=== PATIENT | male | born 1930 | race Caucasian/White ===

== ENCOUNTER 2016-12-04 10:53 | Outpatient (CLI) | payer MEDICARE, OTHER | END 2016-12-04 10:54 | disposition home or self-care (01) | DX: R26.0 Ataxic gait (principal); E87.1 Hypo-osmolality and hyponatremia; E78.5 Hyperlipidemia, unspecified ==

== ENCOUNTER 2017-07-27 14:40 | Outpatient (CLI) | payer MEDICARE, OTHER ==
--- NOTE | 2017-07-27 17:52 | MRI Report ---
EXAM: MRI CERVICAL SPINE WITHOUT CONTRAST EXAM DATE: 07/27/2017 03:32 PM. CLINICAL HISTORY: Cervical radiculopathy. COMPARISONS: None. TECHNIQUE: Multiplanar, multisequence T1-weighted and fluid-sensitive sequences of the cervical spine without contrast. Other: None. FINDINGS: Neurologic Structures: The visualized posterior fossa structures are unremarkable. No signal abnormal ity in the visualized spinal cord. Alignment: There is straightening at the mid portion of the cervical spine. C3-C4 shows 2 mm of anter olisthesis. Bone Marrow: No fractures. Firm bony interbody fusions at C5-C6 and C6-C7. Interspace Levels/Facets: C1-C2: Prominent transverse ligament. No stenosis. C2-C3: Mild broad-based disk bulge is seen. Moderate central stenosis. Moderate bilateral foraminal s tenosis. C3-C4: Some disk dehydration. 2 mm anterolisthesis, some disk uncovering. Moderate central stenosis. Moderate to severe bilateral foraminal stenosis and prominent facets. C4-C5: Disk osteophyte complex at this level. Mild central stenosis. Severe bilateral bony foraminal stenosis. Prominent facets. C5-C6: Firm bony fusion, residual bony bar at the left ventral aspect of the canal, with mild to mode rate central stenosis. Severe left and moderate right foraminal narrowing. C6-C7: Firm interbody fusion is noted. No central or foraminal stenosis. C7-T1: Disk osteophyte complex at this level. No central stenosis. Moderate left foraminal stenosis, right neural foramina is normal. Musculature: Moderate fatty atrophy of the multifidus muscle is seen. Other: The paravertebral and prevertebral soft tissues are normal. IMPRESSION: 1. Straightening of the mid portion of the cervical spine. C3-C4 shows 2 mm of anterolisthesis. No co rd abnormalities. Moderate fatty atrophy of the multifidus muscle. No bony fractures. Firm fusions at C5-C6 and C6-C7. 2. C2-C3 shows a broad-based disk bulge, moderate central stenosis and moderate bilateral foraminal s tenosis. 3. C3-C4 show some disk dehydration, 2 mm of anterolisthesis. Some disk uncovering. Moderate bilatera l foraminal stenosis. 4. C4-C5 shows disk osteophyte complex, mild central stenosis. Severe bilateral foraminal stenosis an d prominent facets. 5. C5-C6 shows a firm bony fusion and residual bony bar with left ventral [id number]-nb-jqehbdoi stenosis. Severe left and moderate right foraminal stenosis. 6. C6-C7 shows firm interbody fusion. No central or foraminal stenosis. 7. C7-T1 shows disk osteophyte complex at this level, moderate left foraminal stenosis, right neural foramina is normal. [facility] Referring Provider Line: [phone] SITE ID: [id number]
== END 2017-07-27 14:41 | disposition home or self-care (01) ==
LOC: DI 14:40
PROVIDERS: ATTEND Psychiatry & Neurology Neurology
DX: M50.31 Other cervical disc degeneration, high cervical region (principal); M43.12 Spondylolisthesis, cervical region
CPT/HCPCS: 72141

== ENCOUNTER 2017-08-12 10:08 | Outpatient (CLI) | payer MEDICARE, OTHER ==
--- NOTE | 2017-08-12 19:00 | XRAY Report ---
BILATERAL WRISTS: 08/12/2017 No comparison. INDICATION: Wrist pain. TECHNIQUE: Three views of each wrist. FINDINGS: There are bone fragments versus soft tissue calcifications about the anterior/volar right wrist of uncertain significance. There are large bone cysts of the carpal bones bilaterally. There are mild degenerative changes of the first carpometacarpal joints. No acute fracture is seen. IMPRESSION: DEGENERATIVE CHANGES OF THE WRISTS ABOVE. BONE FRAGMENTS VERSUS SOFT TISSUE CALCIFICATION ABOUT THE VOLAR RIGHT WRIST IS OF UNCERTAIN CLINICAL SIGNIFICANCE. CORRELATE CLINICALLY FOR TENDERNESS. OTHER IMAGING SUCH CT IS AVAILABLE IF CLINICALLY INDICATED. JOB #: [id number] EXT JOB #: [id number] VIELKA
== END 2017-08-12 10:09 | disposition home or self-care (01) ==
LOC: DI 10:08
PROVIDERS: ATTEND Internal Medicine
DX: M18.0 Bilateral primary osteoarthritis of first carpometacarpal joints (principal)

== ENCOUNTER 2017-10-20 08:00 | Outpatient (CLI) | payer MEDICARE, OTHER ==
[2017-10-20 13:09] LABS: BASOPHILS # (AUTO) 0.1 10^3/uL (0.0-0.1); EOSINOPHILS # (AUTO) 0.1 10^3/uL (0.0-0.7); EOSINOPHILS % (AUTO) 2.7 %; HGB - HEMOGLOBIN 14.7 g/dL (14.0-18.0); LYMPHOCYTES # (AUTO) 1.1 10^3/uL (1.5-3.5); LYMPHOCYTES % (AUTO) 20.8 %; MEAN CORPUSCULAR HEMOGLOBIN 33.4 pg (27.0-31.0); MEAN CORPUSCULAR HGB CONC 34.3 g/dL (32.0-36.0); MEAN CORPUSCULAR VOLUME 97.4 fL (80.0-94.0); MEAN PLATELET VOLUME 7.7 fL (7.4-11.4); MONOCYTES # (AUTO) 0.6 10^3/uL (0.0-1.0); MONOCYTES % (AUTO) 11.1 %; NEUTROPHILS # (AUTO) 3.4 10^3/uL (1.5-6.6); NEUTROPHILS % (AUTO) 64.4 %; PLT - PLATELET COUNT 173 10^3/uL (130-450); RED CELL DISTRIBUTION WIDTH 14.1 % (12.0-15.0); WHITE BLOOD COUNT 5.2 x10^3/uL (4.8-10.8)
[2017-10-20 13:22] LABS: ALBUMIN 4.5 g/dL (3.2-5.5); ALBUMIN/GLOBULIN RATIO 1.9 (1.0-2.2); ALKALINE PHOSPHATASE 54 IU/L (42-121); ALT ALANINE AMINOTRANSFERASE 13 IU/L (10-60); AST ASPARTATE AMINOTRANSFERASE 22 IU/L (10-42); BILIRUBIN,TOTAL 1.3 mg/dL (0.2-1.0); BUN - BLOOD UREA NITROGEN 15 mg/dL (6-20); CALCIUM 9.1 mg/dL (8.5-10.3); CARBON DIOXIDE - CO2 28 mmol/L (21-32); CHLORIDE 100 mmol/L (101-111); CHOL/HDL RATIO 2.4 (<5.0); CHOLESTEROL 241 mg/dL; CREATININE 0.9 mg/dL (0.6-1.2); GFR - MDRD 80 (>89); GLUCOSE 98 mg/dL (70-100); HDL CHOLESTEROL 101 mg/dL; LDL CHOLESTEROL,CALCULATED 122 mg/dL; LDL/HDL RATIO 1.2 (<3.6); SODIUM 136 mmol/L (135-145); TOTAL PROTEIN 6.9 g/dL (6.7-8.2); VLDL CHOLESTEROL 18 mg/dL
== END 2017-10-20 08:01 | disposition home or self-care (01) ==
LOC: LAB.R 08:00
PROVIDERS: ATTEND Internal Medicine
DX: C61 Malignant neoplasm of prostate (principal); E78.5 Hyperlipidemia, unspecified; Z72.89 Other problems related to lifestyle; K21.9 Gastro-esophageal reflux disease without esophagitis; I48.91 Unspecified atrial fibrillation
CPT/HCPCS: 80053; 80061; 84153; 84443; 85025

== ENCOUNTER 2018-06-07 15:49 | Outpatient (CLI) | payer MEDICARE, OTHER ==
[2018-06-07 19:19] LABS: BASOPHILS # (AUTO) 0.1 10^3/uL (0.0-0.1); EOSINOPHILS # (AUTO) 0.1 10^3/uL (0.0-0.7); EOSINOPHILS % (AUTO) 2.1 %; HGB - HEMOGLOBIN 14.3 g/dL (14.0-18.0); LYMPHOCYTES # (AUTO) 1.1 10^3/uL (1.5-3.5); LYMPHOCYTES % (AUTO) 19.2 %; MEAN CORPUSCULAR HEMOGLOBIN 32.5 pg (27.0-31.0); MEAN CORPUSCULAR HGB CONC 33.9 g/dL (32.0-36.0); MEAN CORPUSCULAR VOLUME 95.8 fL (80.0-94.0); MEAN PLATELET VOLUME 7.8 fL (7.4-11.4); MONOCYTES # (AUTO) 0.6 10^3/uL (0.0-1.0); MONOCYTES % (AUTO) 11.3 %; NEUTROPHILS # (AUTO) 3.7 10^3/uL (1.5-6.6); NEUTROPHILS % (AUTO) 66.4 %; PLT - PLATELET COUNT 165 10^3/uL (130-450); RED BLOOD COUNT 4.41 10^6/uL (4.70-6.10); RED CELL DISTRIBUTION WIDTH 15.7 % (12.0-15.0); WHITE BLOOD COUNT 5.6 x10^3/uL (4.8-10.8)
[2018-06-07 19:45] LABS: ALBUMIN 4.2 g/dL (3.2-5.5); ALBUMIN/GLOBULIN RATIO 1.6 (1.0-2.2); BILIRUBIN,TOTAL 1.4 mg/dL (0.2-1.0); CALCIUM 8.9 mg/dL (8.5-10.3); CREATININE 0.4 mg/dL (0.6-1.2); TOTAL PROTEIN 6.9 g/dL (6.7-8.2)
[2018-06-08 08:58] LABS: CLARITY,URINE CLEAR (CLEAR); LEUKOCYTE ESTERASE, URINE NEGATIVE (NEGATIVE); NITRITE,URINE NEGATIVE (NEGATIVE); OCCULT BLOOD,URINE TRACE-INTACT (NEGATIVE); PH,URINE 6.5 PH (5.0-7.5); PROTEIN,URINE NEGATIVE (NEGATIVE); UROBILINOGEN,URINE 0.2 (NORMAL) E.U./dL (NORMAL)
[2018-06-08 08:59] LABS: BACTERIA,URINE None Seen /HPF (None Seen); BILIRUBIN,URINE NEGATIVE (NEGATIVE); GLUCOSE, URINE (UA) NEGATIVE (NEGATIVE); KETONES,URINE (UA) NEGATIVE (NEGATIVE)
[2018-06-08 09:22] LABS: RBC,URINE None Seen /HPF (0-5); SQUAMOUS EPITHELIAL CELL,UR FEW Squamous (<= Few)
== END 2018-06-07 15:50 | disposition home or self-care (01) ==
LOC: LAB.R 15:49
PROVIDERS: ATTEND Physician Assistant Medical
DX: R41.89 Other symptoms and signs involving cognitive functions and awareness (principal); I48.91 Unspecified atrial fibrillation; I10 Essential (primary) hypertension
CPT/HCPCS: 80053; 81001; 85025; 87086

== ENCOUNTER 2019-01-19 12:51 | Outpatient (CLI) | payer MEDICARE, OTHER ==
--- NOTE | 2019-01-19 15:13 | XRAY Report ---
Reason: DYSPHAGIA/PHARYNGOESOPHAGEAL PHASE Procedure Date: 01/19/2019 Accession Number: [id number] / [id number] Procedure: FL - Esophogram CPT Code: FULL RESULT: EXAM: BARIUM ESOPHAGRAM EXAM DATE: 01/19/2019 01:46 PM. CLINICAL HISTORY: Dysphagia/pharyngoesophageal phase. COMPARISONS: None. TECHNIQUE: Routine double contrast esophagram. Fluoroscopy Time: 1 minute 28 seconds. Number of Images: 24. FINDINGS: Swallowing Mechanism: Normal. No tracheal aspiration or penetration. Esophageal Motility: Mildly paretic primary peristaltic stripping wave. Transient tertiary contractions. Mucosa: Normal. No ulcerations or masses. Gastroesophageal Junction: Moderate sized hiatal hernia. No evidence of GE junction stricture. Moderate gastroesophageal reflux was noted without maneuvers involving distal two-thirds of the esophagus in the supine position. Other: None. IMPRESSION: Moderate-sized hiatal hernia with mild to moderate gastroesophageal reflux. No esophageal abnormalities or stricture noted. [facility]
== END 2019-01-19 12:52 | disposition home or self-care (01) ==
LOC: DI 12:51
PROVIDERS: ATTEND Internal Medicine
DX: K21.9 Gastro-esophageal reflux disease without esophagitis (principal); K44.9 Diaphragmatic hernia without obstruction or gangrene
CPT/HCPCS: 74220

== ENCOUNTER 2019-05-17 11:58 | Outpatient (CLI) | payer MEDICARE, OTHER ==
--- NOTE | 2019-05-17 14:50 | MRI Report ---
Reason: MEMORY CHANGES Procedure Date: 05/17/2019 Accession Number: [id number] / [id number] Procedure: MRI - Brain W/O CPT Code: FULL RESULT: EXAM: MRI BRAIN WITHOUT CONTRAST EXAM DATE: 05/17/2019 01:23 PM. CLINICAL HISTORY: 88-year-old presenting with worsening memory loss. Evaluate for intracranial pathology. COMPARISON: MR brain 03/16/2007. TECHNIQUE: Multiplanar, multisequence T1-weighted and fluid-sensitive MR sequences of the brain were performed. Sequences optimized for routine evaluation. Other: None. IV Contrast: None. FINDINGS: Brain Volume: Moderate cortical volume loss. Parenchyma/Dura: No acute parenchymal hemorrhage, mass, or midline shift. 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 There are mild bilateral areas of T2/FLAIR signal hyperintensity seen. No areas of restricted diffusion seen to suggest acute infarct. There is abnormal parenchymal susceptibility artifact seen within bilateral basal ganglia that may represent mineralization. Ventricles/Cisterns: No hydrocephalus. No abnormal extra-axial fluid collection or hemorrhage. Orbits: Changes of bilateral lens replacement. Sella Turcica: The pituitary gland, cavernous sinuses, suprasellar cistern and optic chiasm are unremarkable. IAC: Symmetric and unremarkable. Vasculature: Normal signal flow void is seen in the major arterial structures at the skull base. Sinuses: No acute appearing sinus disease. Bones: No focal pathologic appearing marrow signal changes. Prominent posterior pannus seen at C1-C2 with indentation of the thecal sac. Other: None. IMPRESSION: 1. No definite acute intracranial pathology seen; specifically, no acute infarct, acute intracranial hemorrhage, mass, hydrocephalus, or midline shift. 2. 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 3. Mild white matter changes seen that while nonspecific, may represent sequela of chronic small vessel ischemic disease. [facility]
== END 2019-05-17 11:59 | disposition home or self-care (01) ==
LOC: DI 11:58
PROVIDERS: ATTEND Psychiatry & Neurology Neurology
DX: R41.3 Other amnesia (principal)
CPT/HCPCS: 70551

== ENCOUNTER 2019-06-14 22:41 | Emergency (ER) | payer MEDICARE, OTHER ==
--- NOTE | 2019-06-14 22:54 | ED Physician Documentation ---
History of Present Illness - Stated complaint Stated Complaint: NAUSEA/BP CONCERN - Chief complaint Chief Complaint: Abd Pain - History obtained from History obtained from: Patient, Family - History of Present Illness Timing: Today Pain level now: 5 Improved by: no ameliorating factors Worsened by: no exacerbating factors - Additonal information Additional information: chief complaint is high blood pressure. patient says he has had episodic nausea without vomiting since this morning, generalized malaise, "just don't feel well" (per patient). This started around noon today. took his blood pressure and then did so repeatedly throughout the day, with readings 140s-170s SBP and 70s-90s DBP (one reading of 155/125). He took an extra dose of his QD metoprolol this evening. Review of Systems Constitutional: denies: Fever, Chills, Myalgias, Fatigue, Sweats Cardiac: reports: Reviewed and negative Respiratory: reports: Reviewed and negative GI: reports: Nausea. denies: Abdominal Pain, Vomiting, Constipation, Diarrhea : denies: Dysuria, Frequency Musculoskeletal: denies: Back pain Neurologic: reports: Generalized weakness (chronic), Numbness (BLE (chronic)). denies: Focal weakness, Headache PD PAST MEDICAL HISTORY - Past Medical History Cardiovascular: Hypertension, Atrial fibrillation Respiratory: Other Endocrine/Autoimmune: None GI: None : Other HEENT: Chronic hearing loss, Other Psych: None Musculoskeletal: None Derm: Herpes zoster, Other - Past Surgical History General: Hiatal hernia repair Ortho: Spine surgery, Other HEENT: Cataracts, Tonsil/Adenoidectomy - Present Medications Home Medications: Ambulatory Orders Medication Instructions Recorded Confirmed Apixaban [Eliquis] 5 mg PO BID 04/08/16 06/14/19 Metoprolol Succinate [Toprol Xl] 50 mg PO DAILY 04/08/16 06/14/19 Omeprazole 1 tab PO DAILY 06/14/19 06/14/19 - Allergies Allergies/Adverse Reactions: Allergies Allergy/AdvReac Type Severity Reaction Status Date / Time Penicillins Allergy Rash Verified 06/14/19 22:52 Sulfa (Sulfonamide Allergy Rash Verified 06/14/19 22:52 Antibiotics) lisinopril AdvReac Unknown Verified 06/14/19 22:52 PD ED PE NORMAL - Vitals Vital signs reviewed: Yes - General General: Alert and oriented X 3, No acute distress, Well developed/nourished - HEENT HEENT: PERRL, EOMI, Moist mucous membranes - Neck Neck: Supple, no meningeal sign - Respiratory Respiratory: No respiratory distress, Clear bilaterally - Abdomen Abdomen: Soft, Non tender, Non distended - Derm Derm: Normal color, Warm and dry - Extremities Extremities: No edema PD ED PE EXPANDED - Cardiac Cardiac: Regular Rate, Irregularly irregular, Murmur Present (2/6 GIOVANNI limited to right sternal border) Results - Vitals Vitals: Vital Signs - 24 hr 06/14/19 06/14/19 06/14/19 22:47 23:05 23:07 Temperature 35.8 C L Heart Rate 86 81 Respiratory 11 L 19 Rate Blood Pressure 197/110 H 162/115 H Blood Pressure 162/115 H [Right] O2 Saturation 97 99 06/14/19 06/14/19 06/14/19 23:28 23:32 23:38 Temperature Heart Rate 76 64 68 Respiratory 15 16 12 Rate Blood Pressure 176/105 H 186/105 H 165/108 H Blood Pressure [Right] O2 Saturation 97 98 98 06/14/19 06/15/19 06/15/19 23:58 00:08 00:31 Temperature Heart Rate 76 65 67 Respiratory 14 10 L 16 Rate Blood Pressure 186/96 H 170/96 H 167/94 H Blood Pressure [Right] O2 Saturation 96 97 96 06/15/19 06/15/19 06/15/19 00:48 00:56 01:08 Temperature 36.7 C Heart Rate 73 73 73 Respiratory 14 17 16 Rate Blood Pressure 157/94 H 157/94 H 157/87 H Blood Pressure [Right] O2 Saturation 96 98 99 Oxygen O2 Source Room air - EKG (time done) No standard instances Rate: Rate (enter#) (85) Rhythm: Atrial fibrillation [place]: Normal QRS: Normal Ischemia: Normal ST segments Computer interpretation: Disagree with computer (no significant ST abnormalities) - Labs Labs: Laboratory Tests 06/14/19 06/14/19 23:00 23:00 WBC 5.9 RBC 4.54 L Hgb 14.5 Hct 43.4 MCV 95.6 H MCH 31.9 H MCHC 33.4 RDW 14.4 Plt Count 143 MPV 9.0 Neut # (Auto) 3.9 Lymph # (Auto) 1.1 L Davis # (Auto) 0.7 Eos # (Auto) 0.1 Baso # (Auto) 0.0 Absolute Nucleated RBC 0.00 Nucleated RBC % 0.0 Sodium 134 L Potassium 3.8 Chloride 99 L Carbon Dioxide 25 Anion Gap 10.0 BUN 11 Creatinine 0.8 Estimated GFR (MDRD) 91 Glucose 107 H Calcium 9.0 Total Bilirubin 1.6 H AST 23 ALT 16 Alkaline Phosphatase 58 Total Protein 7.2 Albumin 4.3 Globulin 2.9 Albumin/Globulin Ratio 1.5 Lipase 32 PD MEDICAL DECISION MAKING - ED course Complexity details: reviewed results, re-evaluated patient, considered differe jossyial, d/w patient ED course: BP improved after 5mg IV lopressor followed by 0.2mg PO clonidine. Reassuring test results and patient feels well on reevaluation, has no signs nor symptoms referable to high blood pressure and thus can f/u outpatient, return if worse. I specifically reviewed with patient and his spouse the need to return if he has chest pain, shortness of breath, new weakness or numbness, severe headache, visual changes, altered mental status Departure - Departure Disposition: 01 Home, Self Care Clinical Impression: Hypertension Condition: Good Instructions: ED Hypertension Conf Out Of Control Follow-Up: Jacinto Wilson MD [Primary Care Provider] - Within 3 Days Discharge Date/Time: 06/15/19 01:09
[2019-06-14] MEDS ORDERED: METOPROLOL 5 MG/5 ML VIAL IVP STA (23:09)
[2019-06-14] MEDS ORDERED: ONDANSETRON 4 MG/2 ML VIAL IVP STA (23:17)
[2019-06-14] MEDS ORDERED: SODIUM CHLORIDE 0.9% 500 ML IV STA (23:17)
[2019-06-14 23:19] LABS: BASOPHILS % (AUTO) 0.7 %; EOSINOPHILS # (AUTO) 0.1 10^3/uL (0.0-0.7); EOSINOPHILS % (AUTO) 2.2 %; HGB - HEMOGLOBIN 14.5 g/dL (14.0-18.0); LYMPHOCYTES # (AUTO) 1.1 10^3/uL (1.5-3.5); LYMPHOCYTES % (AUTO) 18.6 %; MEAN CORPUSCULAR HEMOGLOBIN 31.9 pg (27.0-31.0); MEAN CORPUSCULAR HGB CONC 33.4 g/dL (32.0-36.0); MEAN CORPUSCULAR VOLUME 95.6 fL (80.0-94.0); MONOCYTES # (AUTO) 0.7 10^3/uL (0.0-1.0); MONOCYTES % (AUTO) 11.2 %; NEUTROPHILS # (AUTO) 3.9 10^3/uL (1.5-6.6); NEUTROPHILS % (AUTO) 66.6 %; PLT - PLATELET COUNT 143 10^3/uL (130-450); RED BLOOD COUNT 4.54 10^6/uL (4.70-6.10); RED CELL DISTRIBUTION WIDTH 14.4 % (12.0-15.0); WHITE BLOOD COUNT 5.9 x10^3/uL (4.8-10.8)
[2019-06-14 23:33] LABS: ALBUMIN 4.3 g/dL (3.2-5.5); ALBUMIN/GLOBULIN RATIO 1.5 (1.0-2.2); BILIRUBIN,TOTAL 1.6 mg/dL (0.2-1.0); CREATININE 0.8 mg/dL (0.6-1.2); TOTAL PROTEIN 7.2 g/dL (6.7-8.2)
[2019-06-15] MEDS ORDERED: cloNIDine 0.1 MG TABLET PO STA (00:09)
[2019-06-15 01:12] VITALS: BP 157/87
== END 2019-06-15 01:09 | disposition home or self-care (01) ==
LOC: ED 22:41
DX: I10 Essential (primary) hypertension (principal)
CPT/HCPCS: 36415; 80053; 83690; 85025; 93005; 96361; 96374; 96375; 99283; 99284; A9270

== ENCOUNTER 2019-07-05 13:51 | Outpatient (CLI) | payer MEDICARE, OTHER ==
[2019-07-05 14:12] LABS: BASOPHILS # (AUTO) 0.1 10^3/uL (0.0-0.1); BASOPHILS % (AUTO) 1.3 %; EOSINOPHILS # (AUTO) 0.1 10^3/uL (0.0-0.7); EOSINOPHILS % (AUTO) 2.5 %; HGB - HEMOGLOBIN 14.8 g/dL (14.0-18.0); LYMPHOCYTES # (AUTO) 1.2 10^3/uL (1.5-3.5); LYMPHOCYTES % (AUTO) 21.6 %; MEAN CORPUSCULAR HEMOGLOBIN 32.6 pg (27.0-31.0); MEAN CORPUSCULAR HGB CONC 33.9 g/dL (32.0-36.0); MEAN CORPUSCULAR VOLUME 96.3 fL (80.0-94.0); MEAN PLATELET VOLUME 9.4 fL (7.4-11.4); MONOCYTES # (AUTO) 0.7 10^3/uL (0.0-1.0); MONOCYTES % (AUTO) 12.4 %; NEUTROPHILS # (AUTO) 3.4 10^3/uL (1.5-6.6); NEUTROPHILS % (AUTO) 61.8 %; PLT - PLATELET COUNT 164 10^3/uL (130-450); RED BLOOD COUNT 4.54 10^6/uL (4.70-6.10); WHITE BLOOD COUNT 5.5 x10^3/uL (4.8-10.8)
[2019-07-05 14:23] LABS: CALCIUM 9.4 mg/dL (8.5-10.3)
== END 2019-07-05 13:52 | disposition home or self-care (01) ==
LOC: LAB 13:51
PROVIDERS: ATTEND Family Medicine
DX: I48.91 Unspecified atrial fibrillation (principal)
CPT/HCPCS: 36415; 80048; 85025

== ENCOUNTER 2019-11-20 14:13 | Outpatient (CLI) | payer MEDICARE, OTHER | END 2019-11-20 14:14 | disposition critical access hospital (66) | LOC: EMS 14:13 | PROVIDERS: ATTEND Surgery | DX: R47.01 Aphasia (principal) | CPT/HCPCS: A0425; A0429 ==

== ENCOUNTER 2019-11-20 14:22 | Observation (INO) | payer MEDICARE, OTHER ==
--- NOTE | 2019-11-20 14:33 | ED Physician Documentation ---
History of Present Illness - Stated complaint Stated Complaint: POSS TIA - Additonal information Additional information: This is an 89-year-old with atrial fibrillation on Eliquis, hypertension, and carpal tunnel syndrome, who presents with resolved aphasia. At 13:45 he was at his house when he realized he could not speak to his , his speech was reportedly garbled. He also states that he felt weak like he could not get off the couch, but he does not know if he felt weak on one side of his body or the other. He had some numbness in his bilateral hands, though with his carpal tunnel he is not sure if that was new or old. EMS was called right away by his , and he symptoms began resolving en route. Currently he is feeling normal and denies any weakness, numbness, speech change or confusion. He denies any falls or head trauma, no fever, he was feeling well prior to this event. He denies any history of known CVA. He did miss his Eliquis and other medications this morning. BG of 125 en route. Review of Systems Constitutional: denies: Fever Eyes: denies: Loss of vision Nose: denies: Rhinorrhea / runny nose Cardiac: denies: Chest pain / pressure Respiratory: denies: Dyspnea GI: denies: Abdominal Pain : denies: Dysuria Skin: denies: Rash Neurologic: reports: Difficulty speaking Immunocompromised: denies: Immunocompromised PD PAST MEDICAL HISTORY - Past Medical History Cardiovascular: Hypertension, Atrial fibrillation Respiratory: Other Neuro: None Endocrine/Autoimmune: None GI: None : Other HEENT: Chronic hearing loss, Other Psych: None Musculoskeletal: None Derm: Herpes zoster, Other - Past Surgical History Past Surgical History: Yes General: Hiatal hernia repair Ortho: Spine surgery, Other HEENT: Cataracts, Tonsil/Adenoidectomy - Present Medications Home Medications: Ambulatory Orders Medication Instructions Recorded Confirmed Metoprolol Succinate [Toprol Xl] 50 mg PO DAILY 04/08/16 11/20/19 Apixaban [Eliquis] 5 mg PO BID 11/20/19 11/20/19 Esomeprazole Magnesium [Nexium] 20 mg PO QDAC 11/20/19 11/20/19 - Allergies Allergies/Adverse Reactions: Allergies Allergy/AdvReac Type Severity Reaction Status Date / Time Penicillins Allergy Rash Verified 11/20/19 14:31 Sulfa (Sulfonamide Allergy Rash Verified 11/20/19 14:31 Antibiotics) lisinopril AdvReac Unknown Verified 11/20/19 14:31 - Social History Does the pt smoke?: No Smoking Status: Never smoker Does the pt drink ETOH?: Yes Does the pt have substance abuse?: No - Immunizations Immunizations are current?: No Immunizations: TDAP >10years/unknown - POLST Patient has POLST: No PD ED PE NORMAL - Vitals Vital signs reviewed: Yes - General General: Alert and oriented X 3, No acute distress - HEENT HEENT: Atraumatic, PERRL - Neck Neck: Supple, no meningeal sign - Cardiac Cardiac: RRR, No murmur - Respiratory Respiratory: Clear bilaterally - Abdomen Abdomen: Normal bowel sounds, Soft, Non tender, Non distended - Derm Derm: Warm and dry - Extremities Extremities: No deformity - Neuro Neuro: Alert and oriented X 3, Other (CN2-12 intact, PERRL, EOMI, visual solomon intact to confrontation, smile symmetric, no facial droop, sensation over face normal. 5/5 strength with elbow flexion, extension, shoulder abduction, hip flexion, ankle flexion and extension. No drift in any extremity. Speech fluent and articulate. No dysmetria. Sensation intact over all extremities.) - Psych Psych: Normal mood, Normal affect Results - Vitals Vitals: Vital Signs - 24 hr 11/20/19 11/20/19 14:23 15:37 Temperature 36.6 C Heart Rate 88 90 Respiratory 18 30 H Rate Blood Pressure 151/93 H 144/86 H O2 Saturation 98 97 Oxygen O2 Source Room air - EKG (time done) 1615 Other comments: Other comments (Rate 81, rhythm atrial fibrillation, there is no ST segment elevation or depression T wave inversions. There is some T wave flattening in lead III) - Labs Labs: Laboratory Tests 11/20/19 11/20/19 11/20/19 14:30 14:30 14:30 WBC 5.2 RBC 4.51 L Hgb 12.6 L Hct 39.1 L MCV 86.7 MCH 27.9 MCHC 32.2 RDW 14.7 Plt Count 155 MPV 9.3 Neut # (Auto) 3.6 Lymph # (Auto) 1.0 L Burnett # (Auto) 0.5 Eos # (Auto) 0.1 Baso # (Auto) 0.1 Absolute Nucleated RBC 0.00 Nucleated RBC % 0.0 PT 15.4 H INR 1.4 H APTT 36.3 H Sodium 134 L Potassium 3.8 Chloride 101 Carbon Dioxide 24 Anion Gap 9.0 BUN 14 Creatinine 0.8 Estimated GFR (MDRD) 91 Glucose 154 H Calcium 9.0 Total Bilirubin 1.0 AST 24 ALT 13 Alkaline Phosphatase 43 Troponin I High Sens Total Protein 7.1 Albumin 4.3 Globulin 2.8 Albumin/Globulin Ratio 1.5 Lipase 32 Ethyl Alcohol < 5.0 11/20/19 14:30 WBC RBC Hgb Hct MCV MCH MCHC RDW Plt Count MPV Neut # (Auto) Lymph # (Auto) Burnett # (Auto) Eos # (Auto) Baso # (Auto) Absolute Nucleated RBC Nucleated RBC % PT INR APTT Sodium Potassium Chloride Carbon Dioxide Anion Gap BUN Creatinine Estimated GFR (MDRD) Glucose Calcium Total Bilirubin AST ALT Alkaline Phosphatase Troponin I High Sens 6.1 Total Protein Albumin Globulin Albumin/Globulin Ratio Lipase Ethyl Alcohol - Rads (name of study) CT head WO Radiology: Other (No acute intracranial abnormality) PD MEDICAL DECISION MAKING - ED course Complexity details: considered differential (TIA, CVA, head bleed, electrolyte abnormality, delirium, medication side effect, intoxication, electrolye abnormality, dysrhytmia, seizure) ED course: On arrival pt has NIHSS of 0, no deficit on thorough neurologic exam. Stat CT head was obtained and shows no acute abnormality. On repeat exam pt continues to be asymptomatic. His family corroborates his story of poor speech/aphasia. He has a-fib and missed his eliquis, putting him at higher risk for stroke. He was given aspirin here. Labs are unrevealing for other obvious cause of his symptoms, and his history is most consistent with TIA. No reports of seizure like activity, no chest pain or shortness of breath. I discussed my recommendation for admission with the patient, who was in agreement, and he was admitted to the hospital for further treatment and evaluation. Departure - Departure Disposition: ED Place in Observation Clinical Impression: TIA (transient ischemic attack) Condition: Good Discharge Date/Time: 11/20/19 16:49
[2019-11-20 14:41] LABS: BASOPHILS # (AUTO) 0.1 10^3/uL (0.0-0.1); EOSINOPHILS # (AUTO) 0.1 10^3/uL (0.0-0.7); EOSINOPHILS % (AUTO) 1.9 %; HGB - HEMOGLOBIN 12.6 g/dL (14.0-18.0); LYMPHOCYTES % (AUTO) 18.3 %; MEAN CORPUSCULAR HEMOGLOBIN 27.9 pg (27.0-31.0); MEAN CORPUSCULAR HGB CONC 32.2 g/dL (32.0-36.0); MEAN CORPUSCULAR VOLUME 86.7 fL (80.0-94.0); MEAN PLATELET VOLUME 9.3 fL (7.4-11.4); MONOCYTES # (AUTO) 0.5 10^3/uL (0.0-1.0); MONOCYTES % (AUTO) 9.4 %; NEUTROPHILS # (AUTO) 3.6 10^3/uL (1.5-6.6); PLT - PLATELET COUNT 155 10^3/uL (130-450); RED BLOOD COUNT 4.51 10^6/uL (4.70-6.10); RED CELL DISTRIBUTION WIDTH 14.7 % (12.0-15.0); WHITE BLOOD COUNT 5.2 x10^3/uL (4.8-10.8)
[2019-11-20 14:50] LABS: ALBUMIN 4.3 g/dL (3.2-5.5); ALBUMIN/GLOBULIN RATIO 1.5 (1.0-2.2); ALKALINE PHOSPHATASE 43 IU/L (42-121); ALT ALANINE AMINOTRANSFERASE 13 IU/L (10-60); AST ASPARTATE AMINOTRANSFERASE 24 IU/L (10-42); BUN - BLOOD UREA NITROGEN 14 mg/dL (6-20); CARBON DIOXIDE - CO2 24 mmol/L (21-32); CHLORIDE 101 mmol/L (101-111); CREATININE 0.8 mg/dL (0.6-1.2); GFR - MDRD 91 (>89); GLUCOSE 154 mg/dL (70-100); LIPASE 32 U/L (22-51); SODIUM 134 mmol/L (135-145); TOTAL PROTEIN 7.1 g/dL (6.7-8.2)
[2019-11-20 14:52] LABS: INR 1.4 (0.8-1.2); PT - PROTHROMBIN TIME 15.4 secs (9.9-12.6)
--- NOTE | 2019-11-20 14:54 | CT Report ---
Reason: Aphasia, resolving Procedure Date: 11/20/2019 Accession Number: [id number] / [id number] Procedure: CT - Head W/O Stroke Protocol CPT Code: Final Report FULL RESULT: EXAM: CT HEAD EXAM DATE: 11/20/2019 02:40 PM. CLINICAL HISTORY: Aphasia, resolving. COMPARISON: BRAIN W/O 05/17/2019 12:23 PM. TECHNIQUE: Multiaxial CT images were obtained from the foramen magnum to the vertex. Reformats: Sagittal and coronal. IV contrast: None. In accordance with CT protocol optimization, one or more of the following dose reduction techniques were utilized for this exam: automated exposure control, adjustment of mA and/or KV based on patient size, or use of iterative reconstructive technique. FINDINGS: Parenchyma: No intraparenchymal hemorrhage. No evidence of mass, midline shift, or CT findings of acute infarction. Watkins-white differentiation is distinct. 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 Extraaxial Spaces: Normal for age. No subdural or epidural collections identified. Ventricles: The ventricles and cortical sulci are enlarged, consistent with age-related tissue loss. Sinuses and orbits: Imaged paranasal sinuses, orbits, and mastoids show no significant abnormality. Bones: No evidence of fracture or calvarial defect. Other: Prominent chronic cavernous carotid calcifications. IMPRESSION: Generalized age-related cortical atrophic changes without evidence of acute intracranial abnormality. Intracranial atherosclerosis. [facility] The critical test notification system was initiated by Dr. Jose Cristina at 02:50 PM on 11/20/2019. The above critical test findings were discussed with Nahum Pete by Dr. Jose Cristina at 02:53 PM on 11/20/2019.
[2019-11-20 14:59] LABS: PARTIAL THROMBOPLASTIN TIME 36.3 secs (24.9-33.3)
[2019-11-20] MEDS ORDERED: ASPIRIN CHEW 81 MG TABLET PO STA (15:18)
[2019-11-20] MEDS ORDERED: SODIUM CHLORIDE FLUSH 0.9% 10 ML SYRINGE IVP PRN (15:58)
[2019-11-20] MEDS ORDERED: ACETAMINOPHEN 325 MG TABLET PO PRN (15:58)
--- NOTE | 2019-11-20 16:38 | PHARMACY PROGRESS NOTE ---
- Best Possible Medication History Admit Date and Time: 11/20/19 1558 Processed by: Pharmacy Medication History completed: Yes Patient Interview: Completed Secondary Source(s): Written medication list, Spouse/Significant other As the person ultimately responsible for medication therapy, providers are able to order a medication from an existing home medication list in [facility] via the "Reconcile Routine" prior to Confirmation of that medication by application support engineer. Such practice is discouraged except when the physician, in their clinical judgment, deems that a medical need exists for a medication without regard to previous use.
[2019-11-20 18:49] LABS: BILIRUBIN,URINE NEGATIVE (NEGATIVE); GLUCOSE, URINE (UA) NEGATIVE (NEGATIVE); KETONES,URINE (UA) NEGATIVE (NEGATIVE); LEUKOCYTE ESTERASE, URINE NEGATIVE (NEGATIVE); NITRITE,URINE NEGATIVE (NEGATIVE); OCCULT BLOOD,URINE TRACE-INTA (NEGATIVE); PROTEIN,URINE NEGATIVE (NEGATIVE); UROBILINOGEN,URINE 1 (NORMAL) E.U./dL (NORMAL)
[2019-11-20 18:51] LABS: CLARITY,URINE CLEAR (CLEAR)
[2019-11-20] MEDS: SODIUM CHLORIDE FLUSH 0.9% 10 ML SYRINGE IVP SCH (19:56)
--- NOTE | 2019-11-20 20:14 | HISTORY & PHYSICAL EXAMINATION ---
DATE OF SERVICE: 11/20/2019 Physician: Zaynab Durant MD HISTORY OF PRESENT ILLNESS: This is an 89-year-old, white male with a history of hypertension, chronic atrial fibrillation on Eliquis, history of multi- infarct dementia with MRI in 04/2019 showing multiple lacunar infarcts. The patient does not take his Eliquis reliably. The family was told that his brain MRI, done 05/06 to evaluate worsening memory, showed "old age changes". The patient recently had carpal tunnel surgery 4 days ago, under conscious sedation, and still has a bandage over the left wrist. He lives at home with his , he takes walks on the beach and has had several falls on the beach, for which he has not sought medical attention. The patient presents with acute onset of numbness of his mid body starting in the groin area and going up the abdomen and chest, and then he could not speak. He started to garble and called for his for help, who asked him to smile and said that it was not even. He was moving both arms, but had garbled speech. She called 911. The paramedics arrived and transported him to the emergency room. In the ambulance, his speech started to recover and since being in the ER he has had no deficits. He has never had symptoms like this before. He did have a brain MRI done about a year ago to evaluate "poor memory." The family was told that the findings were consistent with "old age." The patient admits that he sometimes skips his Eliquis because, "He does not believe in taking medications." There is no history of odynophagia or GI sensitivity with these medicines, but simply a "philosophical reason" not to take them. When his atrial fibrillation was diagnosed approximately 5 years ago, he did not have a stress test that he can remember. An Echo report is in the old records from about then, that showed a normal LVEF and mild valvular regurgitation. He has never seen a Dissolver Operator. He was first started on Coumadin for Afib, then it was changed to Eliquis. ALLERGIES: PENICILLIN, SULFA, AND LISINOPRIL. MEDICATIONS 1. Eliquis 5 mg b.i.d. 2. Nexium 20 mg daily. 3. Toprol-XL 50 mg daily for blood pressure. FAMILY HISTORY: Noncontributory. SOCIAL HISTORY: The patient is an ex-smoker who quit over 60 years ago, drinks rare alcohol, which he describes as about 5 beers per week, and there is no illicit drug use history. The patient lives with his in their own house. He takes walks on the beach using two walking sticks and has had falls on the beach. The patient still drives a car. REVIEW OF SYSTEMS: The describes that his memory is getting worse, for example; he cannot remember that his younger sister and grandchildren just visited them a week ago, forgets where things are in the house. He denies chest pain or palpitations, lightheadedness or syncope. A comprehensive review of systems was performed and the pertinent positives are listed, the rest are negative. PHYSICAL EXAMINATION GENERAL: Elderly white male. He has quiet speech, but it is appropriate and is not slurred. VITAL SIGNS: Blood pressure 170/80, heart rate 70-90 in sinus rhythm, afebrile, room air saturation 99%. HEENT: Unremarkable. Mucosa is moist. NECK: Positive JVD with large ventricular waves present. There are no carotid bruits. CHEST: Clear. HEART: Heart sounds are irregular with a 3/6 systolic murmur heard at the lower left sternal border. There is no gallop. PMI is vertically displaced. ABDOMEN: Soft, positive bowel sounds. EXTREMITIES: Show trace pretibial edema. No clubbing or cyanosis. The left wrist is in a bandage from the recent carpal tunnel surgery. There are some small bruises of the hand near that bandage. NEUROLOGIC: Grossly intact currently. LABORATORY DATA: Sodium 134, otherwise normal electrolytes. Normal BUN and creatinine. Normal liver tests. Troponin negligible at 6.1. White blood count 5.2, hemoglobin 12.6, platelet count 155. INR was done, but is not reliable in a patient on Eliquis. Toxicology showed no serum alcohol present. IMAGING: No chest x-ray was done. The head CT showed age-related cortical atrophy changes and intracranial atherosclerosis, but no acute stroke findings. EKG: Atrial fibrillation, rate 80, and otherwise unremarkable. It is similar to an old EKG. IMPRESSION/DIAGNOSES 1. Transient ischemic attack. 1. Hypertension. 2. Chronic atrial fibrillation, on Eliquis. 3. Noncompliance with medications. 4. Multi-infarct dementia, by MRI of 04/2019 5. Recent carpal tunnel surgery. PLAN: Place the patient in Observation status on telemetry. Continue with his Toprol medication. Stop his Eliquis, since he now has increased risk of turnin an acute CVA into a hemorrhagic stroke. We will now use antiplatelet agents, with aspirin daily for approximately 2 weeks (per UpToDate guidelines). Order an Echo to evaluate for clot, shunt, check LVEF and to evaluate the murmur. Obtain carotid Dopplers. Obtain brain MRI and MRA for closer evaluation of the intracranial vessel atherosclerosis, and whether there was a parenchymal stroke. I reiterated the importance of compliance with medications, but the patient was not amenable to this. The confirms that he adjusts his medications on his own, has stopped his statins in the past. Check lipids and treat per guidelines. CODE STATUS: FULL CODE. DEEP VENOUS THROMBOSIS PROPHYLAXIS: SCDs. ATTESTATION: The patient is expected to be discharged or transferred to another facility within 96 hours: Yes. cc: Jacinto Wilson MD TD: 11/20/2019 18:20 MTDD
--- NOTE | 2019-11-20 21:43 | Ultrasound Report ---
Reason: TIA Procedure Date: 11/20/2019 Accession Number: [id number] / [id number] Procedure: US - Carotid Doppler Complete CPT Code: Final Report FULL RESULT: EXAM: BILATERAL CAROTID AND VERTEBRAL ARTERY DUPLEX DOPPLER ULTRASOUND: EXAM DATE: 11/20/2019 07:19 PM CLINICAL HISTORY: Transient ischemic attack, hypertension, chronic atrial fibrillation, COMPARISON: None. TECHNIQUE: Grayscale imaging, color Doppler, and duplex spectral Doppler were used to evaluate the carotid and vertebral arteries bilaterally. Static images were obtained. FINDINGS: There is moderate calcific plaque within the mid and distal portion of the right common carotid artery. Moderate to severe atherosclerotic vascular disease within the right carotid bulb region and the proximal ICA. Mild to moderate calcified and soft plaque is seen within the left mid and distal common carotid artery. Moderate to severe atherosclerotic vascular disease within the left carotid bulb region. Mild to moderate atherosclerotic vascular disease in the left proximal ICA. VELOCITIES (cm/sec): Right CCA mid: PSV 45.0 cm/sec CCA dist: PSV 37.8 cm/sec ICA prox: PSV 92.6 cm/sec, EDV 15.2 cm/sec ICA mid: PSV 86.1 cm/sec, EDV 20.2 cm/sec ICA dist: PSV 62.7 cm/sec, EDV 16.5 cm/sec ECA: PSV 72.4 cm/sec Vert: PSV 29.2 cm/sec ICA/CCA: 2.1 Left CCA mid: PSV 37.9 cm/sec CCA dist: PSV 34.5 cm/sec ICA prox: PSV 70.6 cm/sec, EDV 23.7 cm/sec ICA mid: PSV 78.5 cm/sec, EDV 18.2 cm/sec ICA dist: PSV 70.6 cm/sec, EDV 19.1 cm/sec ECA: PSV 85.9 cm/sec Vert: PSV 60.1 cm/sec ICA/CCA: 2.1 ICA diameter stenosis: Right: <50% by velocity and <70% by NASCET criteria. Left: <50% by velocity and <70% by NASCET criteria. IMPRESSION: 1. There is moderate to severe bilateral carotid artery plaquing. 2. Less than 50% stenosis of the right and left internal carotid arteries based on velocity criteria. However, suspect that the degree of stenosis is likely closer to 50%. 3. Normal antegrade flow is present in bilateral vertebral arteries. 4. Further assessment could be considered with a CT or MRI angiogram of the neck if clinically warranted. General Recommendations: Stenosis =50% ICA - Follow-up ultrasound 6-12 months Stenosis <50% ICA - High Risk Patient with plaque - Follow-up ultrasound 1-2 years Normal Study but High Risk Patient - Follow-up ultrasound 3-5 years Management recommendations and diagnostic criteria are based on current IAC endorsed standards in Carotid Artery Stenosis: Grayscale and Doppler Ultrasound Diagnosis. Validated velocity measurements with angiographic measurements and velocity criteria are extrapolated from diameter data as defined by the Society of Radiologists in Ultrasound Consensus Conference Radiology 2003; 229;340-346. RADIA
[2019-11-20] MEDS: FAMOTIDINE 20 MG/2 ML VIAL IVP SCH (22:19)
[2019-11-21] MEDS: SODIUM CHLORIDE FLUSH 0.9% 10 ML SYRINGE IVP SCH ×3 (01:13→21:05)
[2019-11-21 06:06] LABS: CHOL/HDL RATIO 2.6 (<5.0); CHOLESTEROL 197 mg/dL; HDL CHOLESTEROL 76 mg/dL; LDL CHOLESTEROL,CALCULATED 110 mg/dL; LDL/HDL RATIO 1.4 (<3.6); VLDL CHOLESTEROL 11 mg/dL
[2019-11-21] MEDS: PANTOPRAZOLE 40 MG TABLET PO SCH (06:47)
[2019-11-21] MEDS: FAMOTIDINE 20 MG/2 ML VIAL IVP SCH ×2 (08:28→21:02)
[2019-11-21] MEDS: METOPROLOL SUCCINATE 50 MG TABLET PO SCH (08:28)
[2019-11-21] MEDS ORDERED: ASPIRIN EC 325 MG TABLET PO SCH (09:00)
[2019-11-21] MEDS ORDERED: LORazepam 2 MG/ML VIAL IVP STA (12:12)
[2019-11-21] MEDS ORDERED: GADOBUTROL 10 MMOL/10 ML VIAL ONE (12:43)
--- NOTE | 2019-11-21 16:55 | MRI Report ---
Reason: TIA Procedure Date: 11/21/2019 Accession Number: [id number] / [id number] Procedure: MRI - Brain W/O CPT Code: Final Report FULL RESULT: MRI BRAIN WITHOUT CONTRAST INDICATION: 89-year-old male. History of recent transient episode of aphasia. Concern for possible TIA/CVA. TECHNIQUE: 1. Sagittal T1. 2. Coronal fat saturated T2. 3. Axial T1 3D, FLAIR, T2, T2* GRE and DWI. COMPARISON: Head CT 11/20/2019 and brain MRI 05/17/2019. FINDINGS: The patient had difficulty holding still for this examination. There is image degradation from patient motion on some sequences, decreasing the diagnostic quality of this study. Again demonstrated is generalized cerebral and cerebellar volume loss, essentially stable when compared to the MRI study of 05/17/2019. There is associated ex vacuo third/lateral ventriculomegaly, unchanged. The axial T2 FLAIR sequence is significantly degraded due to artifact from patient motion. Again demonstrated is a mild amount of white matter disease in the supratentorial brain, likely representing chronic microangiopathy. Grossly the signal intensity of the cortex and white matter is otherwise unremarkable. It is difficult to confirm patency of intracranial arteries on sequences provided. Please refer to report for the patient's brain MRI performed at same visit but dictated separately. No abnormal diffusion restriction is demonstrated. No evidence of acute or chronic hemorrhage on the T2* GRE sequence. No abnormal extra-axial fluid collection. No mass-effect or midline shift. Very limited evaluation of the orbits reveals no obvious pathology. Mild mucosal thickening is seen scattered throughout the ethmoid air cells. The paranasal sinuses are otherwise clear. No mastoid or middle ear effusion. IMPRESSION: 1. The patient was not able to hold still for this examination. There is image degradation from patient motion that limits the diagnostic quality of this study. 2. However, no acute intracranial pathology is identified. In particular, there is no evidence of acute infarction on diffusion-weighted imaging.
--- NOTE | 2019-11-21 19:06 | ADVANCE CARE PLANNING NOTE ---
Advance Care Planning - Planning Encounter Date: 11/21/19 Time: 17:00 Purpose: To delivery results of the stroke work-up to the patient and and to offer options for neck sites of care. Parties in Attendance: The and I spoke at the patient's bedside, the patient was not yet awake after having Ativan for his claustrophobia to undergo the brain MRI. Decisional Capacity of the Patient: He does not have decisional capacity currently, he is still sedated. Overall his memory is poor when he is fully awake but still was able to make decisions yesterday. - Encounter Subjective/Patient's Story: The patient has a Hx of HTN and chronic Afib, never had a stress test or saw a Distance Learning Administrator, only had an Echo ordered by his PCP when his Afib started about 5 years ago. He was on Coumadin then changed to Eliquis, which he skips occasionally because he does not like to be on medications. One year ago the family asked his PCP to evaluate why his memory is worsening and he had a brain MRI and they were told he had findings of "old age". Yesterday he presented with sensory changes and inability to speak, which lasted about 30 min and his called 911 and he was brought to the ER. Objective/Medical Story: He actually had multiple lacunar infarct seen on last years brain MRI. The workup and results of today's tests were reviewed with the at bedside at this discussion: Bilateral carotid plaques, a widely patent foramen ovale, no acute CVA by MRI, a clot was seen in intracerebral vessel and other atherosclerotic findings in brain vasculature. Neurology gambling monitor at [facility] has recommended restarting Eliquis, and that no transfer for IR is needed. She revealed that he has a neurologist in [facility], and wondered if another neurologist's opinion could be obtained about IR management. I offered that we would speak to [place] at , since it is 7 pm now, and his Neurologist may not be available. I have signed out for our Tip Bander to speak with Neuro AND to descibe all the MRA findings, which have just now been FAXed in the final MRA report, and not just what I heard from the verbal report from [facility], since the complete MRA report has not loaded into [employer] for 3 hours since the time of the verbal report. Goals of Care: The wants everything done for her , including undergoing IR at another facility. Will continue to work on this (Tip Bander was given sign-out in detail). Restart Demario allen. Plan: As above. Code Status: Attempt Resuscitation Time spent on advance care plannin min
[2019-11-21] MEDS ORDERED: ATORVASTATIN 40 MG TABLET PO SCH (21:00)
[2019-11-21] MEDS: APIXABAN 2.5 MG TABLET PO SCH (21:01)
--- NOTE | 2019-11-21 22:00 | PROVIDER PROGRESS NOTE ---
Landscape Foreman Note - Landscape Foreman Note Landscape Foreman Note: I consulted Stroke-Neurologist Dr Terrance Royal at [facility] with regards to the brain MRA findings of a probable intramural thrombus in the proximal P2 segment of the right EVENT SALES REPRESENTATIVE. He stated that in the absence of any ongoing neurologic symptoms or acute infarct on imaging, no intervention would be done. He advised reviewing the image with radiology to ensure there were no micro- bleeds. This was done and confirmed to be absent by the radiologist. Then ordering a CT Angio of the head. He also advised appropriate blood pressure control with and eventual goal to a SBP of 140 in the next 48hrs. Patient and family will need to continue blood pressure monitoring at home. Then completing work up/management of TIA/CVA to include lipid panel, HgA1C. The patient is on atorvastatin at 40mg qpm. On eliquis 5mg po bid. Metoprolol 50mg po daily CT Angio head is pending for the morning. Lower Extremity dopplers are in process. Patient is resting omfortably in bed. He currently does not have any neurologic symptoms His son and the son's were at bedside. This was discussed with them and all their questions answered.
--- NOTE | 2019-11-21 23:49 | Ultrasound Report ---
Reason: Eval for DVT, has PFO and strokes Procedure Date: 11/21/2019 Accession Number: [id number] / [id number] Procedure: US - Duplex Ext Veins Bilateral CPT Code: Final Report FULL RESULT: EXAM: BILATERAL LOWER EXTREMITY VENOUS ULTRASOUND EXAM DATE: 11/21/2019 10:56 PM. CLINICAL HISTORY: Eval for DVT, has PFO and strokes. COMPARISON: None. TECHNIQUE: Real-time sonographic vascular imaging was performed by the supervisor assembly through the lower extremities utilizing both color-flow and Doppler spectral analysis. Multiple agricultural sales representative static images were saved for review. FINDINGS: Right: Common Femoral Vein (CFV): Normal. CFV-GSV Junction: Normal. Profunda Femoral Vein (PFV): Normal. Femoral Vein (FV) Prox: Normal. Femoral Vein (FV) Mid: Normal. Femoral Vein (FV) Dist: Normal. Popliteal Vein: Normal. Posterior Tibial Veins: Limited assessment due to motion and body habitus. Peroneal Veins: Limited assessment due to motion and body habitus. Left: Common Femoral Vein (CFV): Normal. CFV-GSV Junction: Normal. Profunda Femoral Vein (PFV): Normal. Femoral Vein (FV) Prox: Normal. Femoral Vein (FV) Mid: Normal. Femoral Vein (FV) Dist: Normal. Popliteal Vein: Normal. Posterior Tibial Veins: Limited assessment due to motion and body habitus. Peroneal Veins: Limited assessment due to motion and body habitus. Other: Calcific atherosclerotic vascular disease evident. IMPRESSION: 1. No evidence of deep vein thrombosis in the visualized bilateral lower extremity veins. 2. Limited assessment of lower leg/calf vessels due to motion and body habitus. RADIA
[2019-11-22] MEDS ORDERED: IOVERSOL 320 100 ML VIAL IVP ONE ×2 (01:02→01:51)
--- NOTE | 2019-11-22 02:38 | CT Report ---
Reason: TIA work up for numbness and garbled speech. Procedure Date: 11/22/2019 Accession Number: [id number] / [id number] Procedure: CT - ANGIO HEAD W/WO CPT Code: Final Report FULL RESULT: EXAM: CT ANGIOGRAM HEAD CT SCAN HEAD WITHOUT AND WITH CONTRAST EXAM DATE: 11/22/2019 01:09 AM CLINICAL HISTORY: TIA work-up for numbness and garbled speech. COMPARISON: BRAIN W/WO 11/21/2019 1:01 PM, BRAIN ANGIO W/O 11/21/2019 12:40 PM, HEAD W/O STROKE PROTOCOL 11/20/2019 2:40 PM. TECHNIQUE: - CT Scan Head: Using a multidetector scanner, axial images were acquired from the foramen magnum to the skull vertex prior to and following contrast administration. - CT Angiogram: Using a multidetector scanner, high-resolution axial images were acquired from the skull base through vertex following rapid infusion of intravenous contrast. Reformats: Multiplanar MIP reformats were reconstructed. NASCET criteria used for stenosis measurement. IV Contrast: 80 mL Optiray 320. In accordance with CT protocol optimization, one or more of the following dose reduction techniques were utilized for this exam: automated exposure control, adjustment of mA and/or KV based on patient size, or use of iterative reconstructive technique. FINDINGS: NON-CONTRAST HEAD: Parenchyma: No intraparenchymal hemorrhage. No evidence of mass, midline shift, or CT findings of infarction. Watkins-white differentiation is distinct. Mild cerebral white matter hypodensity is noted, likely reflecting chronic microvascular ischemic changes in a patient of this age. Extraaxial Spaces: Normal for age. No subdural or epidural collections identified. Ventricles: There is moderate generalized cerebral volume loss, in keeping with the patient's age. Sinuses and Orbits: Postsurgical changes from cataract extractions are present in the globes. Bones: No evidence of fracture or calvarial defect. POST-CONTRAST HEAD: No abnormal enhancement. There is normal contrast opacification in the dural venous sinuses. CT ANGIOGRAM HEAD: There is faint intra-arterial contrast opacification mildly limiting evaluation. The internal carotid arteries are patent from the superior cervical to the supraclinoid portions. Calcified plaque is present in the bilateral carotid siphons resulting in 50% stenosis bilaterally. The bilateral A1, M1, and M2 segments are patent. The anterior cerebral artery is triplicated, a normal variant. There is focal high-grade stenosis of a posterior branch of the triplicated anterior cerebral artery (image 80, series 14) approaching 90%. No high-grade stenosis of the bilateral MCA branches is seen. No aneurysm is seen in the expected location of the anterior communicating artery. In the posterior circulation, the right vertebral artery is slightly congenitally hypoplastic and ends in PICA. No high-grade stenosis is clearly appreciated in the faintly opacified left vertebral artery. The left PICA is well-demonstrated. The basilar artery is widely patent throughout its course to the terminus. There is normal contrast opacification in the superior cerebellar and posterior cerebral arteries. There is stenosis of the right posterior communicating artery which arises from the ICA (image 119, series 7) measuring up to 70-80% and correlates to the area of signal loss on the MRA of the head. This does not appear to represent intraluminal thromboembolism. A small left posterior communicating artery is present. IMPRESSION: 1. No acute intracranial process or abnormal brain parenchymal enhancement. 2. Patent dural venous sinuses. 3. Focal stenosis approaches 90% involving a posterior branch of the triplicated anterior cerebral artery. 4. No high-grade stenosis of the MCA branches is seen. 5. Focal high-grade stenosis of the origin right posterior cerebral artery is seen measuring 70-80%. This correlates with the area of abnormality on the MRA of the head but does not represent acute thromboembolism. 6. Given the patient's age, these findings likely represent severe intracranial atherosclerosis. RADIA
[2019-11-22] MEDS ORDERED: hydrALAZINE INJ 20 MG/ML VIAL IVP PRN (03:08)
[2019-11-22] MEDS: SODIUM CHLORIDE FLUSH 0.9% 10 ML SYRINGE IVP SCH ×2 (05:43→08:51)
[2019-11-22] MEDS: PANTOPRAZOLE 40 MG TABLET PO SCH (06:28)
[2019-11-22 06:43] LABS: HB2 TOTAL 11.3 g/dL; HEMOGLOBIN A1C 0.42 g/dL; HEMOGLOBIN A1C % 5.6 % (4.6-6.2)
[2019-11-22 08:05] VITALS: BP 148/88
--- NOTE | 2019-11-22 08:33 | PROVIDER PROGRESS NOTE ---
Assessment/Plan - Problem List (1) TIA (transient ischemic attack) Assessment/Plan: There have been no new neurologic changes since admission, while awake. The workup for cause of TIA was underway all day and the findings were: Bilateral carotid plaques, a widely patent foramen ovale, no acute CVA by MRI, a clot was seen in intracerebral vessel and other atherosclerotic findings in brain vaculature. He was first put on daily ASA (yesterday and today), until an acute stroke was ruled out, in order to not use anticoagulants that could cause hemorrhagic conversion of a stroke. I spoke to the [facility] on-call Neurologist with the findings of (+) PFO, clot in R OPAL MINER vessel, and Hx of chronic Afib on Eliquis which was only intermittently treated. The Neurologist advised: 1) resume anticoagulation with Eliquis, 2) warn of risks of clots if he stops Eliquis on his own, 3) No IR transfer needed because the clot is too distal for angio, 4) evaluate for DVT, 5) he will need a Cardiology consult as an outpatient to determine if the PFO needs closure or if just staying on Eliquis is enough management, 6) no need for aspirin plus Eliquis, since he is not an Eliquis failure since he was non-compliant with its use, 7) Aspirin plus Plavix was not recommended over restarting just Eliquis, 8) make sure the Eliquis dose is correct for his BMI and creat, 9) Treat hyperlipidemia and HTN, as per guidelines. I spoke to the about all the above recommendations. She revealed that he has a neurologist in [facility], and wondered if another neurologist's opinion could be obtained about IR management. I offered that we would speak to [email or web address] [facility]) at , since it is 7 pm now, and his Neurologist may not be available. I have signed out for our Automatic Spooler Operator to speak with Neuro AND to descibe all the MRA findings, which have just now been FAXed in the final MRA report, and not just what I heard from the verbal report from [facility], since the complete MRA report has not loaded into [employer] for 3 hours since the time of the verbal report. (2) Late effect of lacunar infarction Assessment/Plan: The was told of the findings of 3 areas of lacunar infarcts seen already on the 05/06 brain MRI. 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 She then remembered that he had vision changes about 10 years ago that lasted 3 weeks, this was double vision in a mid-field area that he never sought medical attention for. (3) Chronic a-fib Assessment/Plan: Rate is controlled on his B-dhaval, the anticoagulation was intermittent on Eliquis as discussed above. Remain on telemetry for 24 hours, in Obs status, is planned. (4) Hypertension Qualifiers: Hypertension type: unspecified Qualified Code(s): I10 - Essential (primary) hypertension Assessment/Plan: BP is stable on current management. (5) PFO (patent foramen ovale) Assessment/Plan: As discussed in #1 (6) Non compliance w medication regimen Assessment/Plan: As discussed in #1 - Current Meds Current Meds: Current Medications Generic Name Dose Route Start Last Admin Trade Name Freq PRN Reason Stop Dose Admin Apixaban 5 mg 11/21/19 21:00 11/21/19 21:01 Eliquis PO 5 mg BID ESTELITA Administration Atorvastatin Calcium 40 mg 11/21/19 21:00 11/21/19 21:02 Lipitor PO 40 mg QPM ESTELITA Administration Famotidine 20 mg 11/20/19 21:00 11/21/19 21:02 Pepcid IVP 20 mg BID ESTELITA Administration Metoprolol Succinate 50 mg 11/21/19 09:00 11/21/19 08:28 Toprol Xl PO 50 mg DAILY ESTELITA Administration Pantoprazole Sodium 40 mg 11/21/19 07:00 11/22/19 06:28 Protonix PO 40 mg QDAC ESTELITA Administration Sodium Chloride 10 ml 11/20/19 15:58 11/20/19 22:20 Normal Saline Flush 0.9% IVP 10 ml PRN PRN Administration NEEDED PER PROVIDER ORDERS Sodium Chloride 10 ml 11/20/19 17:00 11/22/19 05:43 Normal Saline Flush 0.9% IVP 10 ml 0100,0900,1700 ESTELITA Administration - Lab Result Fish Bone Diagrams: 11/20/19 14:30 11/20/19 14:30 - Additional Planning My Orders: My Active Orders 11/21/19 08:00 Echo Complete w/Bubble Study [ECHO] Routine 11/21/19 09:00 Metoprolol Succinate [Toprol Xl] 50 mg PO DAILY 11/21/19 11:00 BRAIN WO [MRI] Routine 11/21/19 15:28 Echo Transthoracic Complete [ECHO] Routine 11/21/19 21:00 Apixaban [Eliquis] 5 mg PO BID Atorvastatin [Lipitor] 40 mg PO QPM Subjective - Subjective Patient Reports: Other (Awake and impatient before MRI, needed Ativan for claustrophobia for MRI, then was sedated until about 1830 today) Objective Vital Signs: Vital Signs - 24 hr 11/21/19 11/21/19 11/21/19 10:25 11:30 15:44 Temperature 36.3 C L 36.3 C L Heart Rate [ 75 Activity] Heart Rate [ 70 80 Brachial] Heart Rate [ 77 Supine] Respiratory 18 16 Rate Blood Pressure 174/111 H [Activity] Blood Pressure 162/87 H 167/91 H [Left Brachial artery] Blood Pressure 158/79 H [Supine] O2 Saturation 100 98 11/21/19 11/21/19 11/22/19 21:45 23:25 05:00 Temperature 36.2 C L 36.2 C L 36.2 C L Heart Rate [ Activity] Heart Rate [ 68 84 53 L Brachial] Heart Rate [ Supine] Respiratory 16 20 16 Rate Blood Pressure [Activity] Blood Pressure 135/83 H 160/81 H 148/59 H [Left Brachial artery] Blood Pressure [Supine] O2 Saturation 100 98 97 11/22/19 08:04 Temperature 36.5 C Heart Rate [ Activity] Heart Rate [ 70 Brachial] Heart Rate [ Supine] Respiratory 16 Rate Blood Pressure [Activity] Blood Pressure 148/88 H [Left Brachial artery] Blood Pressure [Supine] O2 Saturation 100 Oxygen O2 Source Room air I&O (Last 24 Hrs): Intake and Output Totals x24h 11/20/19 11/21/19 11/22/19 23:59 23:59 23:59 Intake Total 390 1710 200 Output Total 400 625 Balance -10 1085 200 General: Other (Sleeping) HEENT: Mucous membr. moist/pink Neck: Supple, No JVD Neuro: Non Focal, Other (Currently sedated after iv Ativan) Cardiovascular: No murmurs, Other (Irreg) Respiratory: No respiratory distress, Breath sounds nml Abdomen: Normal bowel sounds, Soft Extremities: No edema - Results Results: Laboratory Results WBC 5.2 x10^3/uL (4.8-10.8) 11/20/19 14:30 RBC 4.51 10^6/uL (4.70-6.10) L 11/20/19 14:30 Hgb 12.6 g/dL (14.0-18.0) L 11/20/19 14:30 Hct 39.1 % (42.0-52.0) L 11/20/19 14:30 MCV 86.7 fL (80.0-94.0) 11/20/19 14:30 MCH 27.9 pg (27.0-31.0) 11/20/19 14:30 MCHC 32.2 g/dL (32.0-36.0) 11/20/19 14:30 RDW 14.7 % (12.0-15.0) 11/20/19 14:30 Plt Count 155 10^3/uL (130-450) 11/20/19 14:30 MPV 9.3 fL (7.4-11.4) 11/20/19 14:30 Neut # (Auto) 3.6 10^3/uL (1.5-6.6) 11/20/19 14:30 Lymph # (Auto) 1.0 10^3/uL (1.5-3.5) L 11/20/19 14:30 Ashley # (Auto) 0.5 10^3/uL (0.0-1.0) 11/20/19 14:30 Eos # (Auto) 0.1 10^3/uL (0.0-0.7) 11/20/19 14:30 Baso # (Auto) 0.1 10^3/uL (0.0-0.1) 11/20/19 14:30 Absolute Nucleated RBC 0.00 x10^3/uL 11/20/19 14:30 Nucleated RBC % 0.0 /100WBC 11/20/19 14:30 PT 15.4 secs (9.9-12.6) H 11/20/19 14:30 INR 1.4 (0.8-1.2) H 11/20/19 14:30 APTT 36.3 secs (24.9-33.3) H 11/20/19 14:30 Sodium 134 mmol/L (135-145) L 11/20/19 14:30 Potassium 3.8 mmol/L (3.5-5.0) 11/20/19 14:30 Chloride 101 mmol/L (101-111) 11/20/19 14:30 Carbon Dioxide 24 mmol/L (21-32) 11/20/19 14:30 Anion Gap 9.0 (6-13) 11/20/19 14:30 BUN 14 mg/dL (6-20) 11/20/19 14:30 Creatinine 0.8 mg/dL (0.6-1.2) 11/20/19 14:30 Estimated GFR (MDRD) 91 (>89) 11/20/19 14:30 Glucose 154 mg/dL (70-100) H 11/20/19 14:30 Glycated Hemoglobin 5.6 % (4.6-6.2) 11/22/19 05:43 Estim Average Glucose 114 (70-100) H 11/22/19 05:43 Calcium 9.0 mg/dL (8.5-10.3) 11/20/19 14:30 Total Bilirubin 1.0 mg/dL (0.2-1.0) 11/20/19 14:30 AST 24 IU/L (10-42) 11/20/19 14:30 ALT 13 IU/L (10-60) 11/20/19 14:30 Alkaline Phosphatase 43 IU/L (42-121) 11/20/19 14:30 Troponin I High Sens 6.1 ng/L (2.3-19.7) 11/20/19 14:30 Total Protein 7.1 g/dL (6.7-8.2) 11/20/19 14:30 Albumin 4.3 g/dL (3.2-5.5) 11/20/19 14:30 Globulin 2.8 g/dL (2.1-4.2) 11/20/19 14:30 Albumin/Globulin Ratio 1.5 (1.0-2.2) 11/20/19 14:30 Triglycerides 57 mg/dL (-149) 11/21/19 05:17 Cholesterol 197 mg/dL (-199) 11/21/19 05:17 LDL Cholesterol, Calc 110 mg/dL (-129) 11/21/19 05:17 VLDL Cholesterol 11 mg/dL 11/21/19 05:17 HDL Cholesterol 76 mg/dL (60-) 11/21/19 05:17 LDL/HDL Ratio 1.4 (<3.6) 11/21/19 05:17 Cholesterol/HDL Ratio 2.6 (<5.0) 11/21/19 05:17 Lipase 32 U/L (22-51) 11/20/19 14:30 Urine Color YELLOW 11/20/19 18:44 Urine Clarity CLEAR (CLEAR) 11/20/19 18:44 Urine pH 6.0 PH (5.0-7.5) 11/20/19 18:44 Ur Specific [place] 1.020 (1.002-1.030) 11/20/19 18:44 Urine Protein NEGATIVE mg/dL (NEGATIVE) 11/20/19 18:44 Urine Glucose (UA) NEGATIVE mg/dL (NEGATIVE) 11/20/19 18:44 Urine Ketones NEGATIVE mg/dL (NEGATIVE) 11/20/19 18:44 Urine Occult Blood TRACE-INTA (NEGATIVE) 11/20/19 18:44 Urine Nitrite NEGATIVE (NEGATIVE) 11/20/19 18:44 Urine Bilirubin NEGATIVE (NEGATIVE) 11/20/19 18:44 Urine Urobilinogen 1 (NORMAL) E.U./dL (NORMAL) 11/20/19 18:44 Ur Leukocyte Esterase NEGATIVE (NEGATIVE) 11/20/19 18:44 Ur Microscopic Review NOT INDICATED 11/20/19 18:44 Ethyl Alcohol < 5.0 mg/dL 11/20/19 14:30 - Procedures Procedures: Procedures EXCISION OF RIGHT SPERMATIC CORD, OPEN APPROACH (05/13/16) RELEASE MEDIAN NERVE, OPEN APPROACH (04/15/16) SUPPLEMENT R INGUINAL REGION WITH SYNTH SUB, OPEN APPROACH (05/13/16)
[2019-11-22] MEDS: FAMOTIDINE 20 MG/2 ML VIAL IVP SCH (08:51)
[2019-11-22] MEDS: APIXABAN 2.5 MG TABLET PO SCH (08:51)
[2019-11-22] MEDS: METOPROLOL SUCCINATE 50 MG TABLET PO SCH (08:51)
--- NOTE | 2019-11-22 11:16 | Discharge Plan ---
Discharge Plan Problem Reviewed?: Yes Disposition: 01 Home, Self Care Condition: Good Diet: Cardiac Activity Restrictions: Activity as Tolerated Shower Restrictions: No Driving Restrictions: Yes (no driving) Instruction Topics: Hypertension Control, High Blood Pressure, Hypertension Dc, Stroke Prevent Live W Atrial Fib, Atrial Fibrillation Health Concerns: You are a gentleman who has high blood pressure and chronic atrial fibrillation and occasionally take Eliquis. You presented to our hospital with a history of memory loss over the last year and at that time an MRI showing small multiple strokes. You came to our emergency room with a sudden onset of numbness and inability to speak which was resolved by the time you were in the ambulance and coming here. The main abnormality we found as the possible cause of your strokes was: +a widely patent foramen ovale seen on Echocardiogram. That is a hole in the heart wall that separates right from left. +Your CT of the head was showing generalized age-related brain shrinkage. +The brain MRI was difficult to do since you were unable to sit still for the examination. +We look for clots in your legs and none were present. +The angiogram of your head showed severe narrowing of arteries in the right back brain, and the left frontal brain. Multiple specialists were spoken to i ncluding neurology, cardiology, interventional radiology. Plan of Treatment: Cardiology does not feel that you need an intervention to close the hole in your heart at this time. But that is predicated on you taking your Eliquis on a daily basis. And neurology would like you to take a blood pressure pill, your Eliquis, and a cholesterol pill to reduce your risk of stroke. Interventional radiology does not feel that we need to do a Clot dissolving procedure on your brain arteries. If you choose not to take Eliquis on a daily basis, your risk of stroke is quite high. Only you can make the decision whether you want to take this medicine or not. However we would ask you to make plans if you opt not to take this medicine and end up with a devastating stroke. Where will you live? Who will take care of you? Would you go to a mcc/home? Will you stay at home with private duty hire? Care Goals: 1. To return home, take your medications on a regular basis. 2. Please have your primary care provider refer you to director of teenage activities, neurologist if you require further treatment or a second opinion. 3. Please see Dr. Brown in the next 1 to 2 weeks for follow-up. At that time, please share with him your philosophy of whether you want to take Eliquis or not, so that it can be recorded in the chart when you return to see us at a later date. Assessment: Patient will follow through on goals and expresses understanding No Smoking: If you smoke, Please STOP! Call for help. Follow-up with: Jacinto Wilson MD [Primary Care Provider] -
--- NOTE | 2019-11-22 15:44 | MRI Report ---
Reason: TIA Procedure Date: 11/21/2019 Accession Number: [id number] / [id number] Procedure: MRI - Angio Brain W/O (MRA) CPT Code: Final Report FULL RESULT: MR ANGIOGRAM HEAD WITHOUT CONTRAST INDICATION: 89-year-old male with recent, transient episode of aphasia. Concern for possible TIA. Please assess. COMPARISON: None. FINDINGS: The patient had difficulty holding still for this examination. There is some image degradation from patient motion. There is diffuse luminal irregularity in the carotid siphons, presumably from calcified atherosclerotic plaque (see recent head CT). No hemodynamically significant ICA stenosis is demonstrated. No definite ICA aneurysm is seen. There appear to be shallow, wide necked outpouchings from the medial and lateral amin of the posterior cavernous segment of the left ICA (see image 104 of series 401). This probably relates to luminal irregularity caused by calcified plaque in the wall of the vessel more anteriorly. In addition, if these do indeed represent aneurysms, treatment should not be required given that this segment of the ICA is extradural in location and rupture would not result in subarachnoid hemorrhage. The A1 segment of the right anterior cerebral artery is mildly hypoplastic with larger left A1 segment. There appears to be relatively severe narrowing in the right A1 segment starting about 1.8 mm distal to the origin and extending over a distance of roughly 2 mm (see image 1 of series 406). This may be artifactual. The left A1 segment appears widely patent. No definite anterior communicating artery is demonstrated. Flow related enhancement is seen in the A2 branches bilaterally. 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 There is focal narrowing in the more posterior of the 2 right A2 branches roughly 1.9 cm above the origin that may be hemodynamically significant (see image 1 of series 406). The right MCA is unremarkable. No aneurysm is demonstrated and there is no obvious occlusion or hemodynamically significant stenosis affecting the main branches of the right MCA. There appears to be greater than 50% narrowing in the proximal M1 branch for the left MCA, just distal to its origin (for example see image 12 of series 406). The mid to distal M1 segments have a more normal caliber. Flow related enhancement is seen in M2 branches at the MCA bifurcation. No aneurysm is demonstrated. The right vertebral artery is hypoplastic. 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 The left vertebral artery is patent. The left PICA origin appears to be below the inferior margin of the field of view provided. Flow related enhancement is seen in the basilar artery. However, there is segmental narrowing in the proximal basilar artery. This is probably from atherosclerotic plaque in the left lateral wall. 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 Flow related enhancement is seen in the superior cerebellar arteries bilaterally. There are findings concerning for intraluminal thrombus in the proximal P2 segment of the right TRAFFIC SAFETY ADMINISTRATOR (see image 118 of series 401) just distal to its junction with the right posterior communicating artery. There does appear to be some flow related enhancement more distally. The left TRAFFIC SAFETY ADMINISTRATOR appears patent. There is a small left posterior communicating artery. No aneurysms are demonstrated arising from the basilar artery trunk or apex. IMPRESSION: 1. There are imaging findings concerning for probable intraluminal thrombus in the proximal P2 segment of the right posterior cerebral artery. There is a small amount of enhancement more distally suggesting that this probably represents an incompletely occluding thrombus in the proximal P2 branch. Recommend further assessment with CT angiography if possible. 2. There appears to be relatively severe stenosis in proximal M1 branch for the left MCA. This also could be further evaluated with CT angiography. 3. Equivocal findings suggesting that there may be hemodynamically significant stenosis in the proximal A1 branch for the right anterior cerebral artery. This may be artifactual. 4. 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 This could be further evaluated with CT angiography. 5. 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 The call report notification system was initiated by Dr. Johnathon Albright at 04:03 PM on 11/21/2019. The above call report findings were discussed with Dr. Zaynab Durant by Dr. Johnathon Albright at 04:42 PM on 11/21/2019.
--- NOTE | 2019-11-23 11:57 | DISCHARGE SUMMARY ---
Physician: Gogo Sullivan MD DATE OF ADMISSION: 11/20/2019 DATE OF DISCHARGE: 11/22/2019 PRIMARY CARE PROVIDER: Jacinto Wilson MD DISCHARGE DIAGNOSES 1. Transient ischemic attack. 2. Late effect of lacunar infarction. 3. Chronic atrial fibrillation. 4. Hypertension. 5. Patent foramen ovale. 6. Noncompliance with medical regimen. DISCHARGE MEDICATIONS 1. Eliquis 5 mg p.o. b.i.d. 2. Nexium 20 mg p.o. daily. 3. Metoprolol succinate 50 mg daily. PRINCIPAL PROCEDURES 1. CT of the head shows generalized age-related cortical atrophic changes without evidence of acute intracranial abnormality. 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 2. Carotid Doppler study shows moderate calcific plaquing within the mid and distal portion of the right common carotid artery. Moderate to severe atherosclerotic vascular disease within the right carotid bulb region and proximal internal carotid artery. Mild to moderate calcified and soft plaque seen within the left mid and distal common carotid artery. Moderate to severe atherosclerotic vascular disease within the left carotid bulb region. 3. Brain MRI is compared to MRI 05/17/2019. Generalized cerebral and cerebellar volume loss. Stable. This current MRI has significant artifact due to patient motion. His MRI from 05/07/2019 shows old chronic lacunar infarcts in the right cerebellum, left cerebellum, and right thalamus. 4. 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 This is seen in the P2 segment of the right posterior cerebral artery. Severe stenosis seen in the proximal M1 branch of the left middle cerebral artery. Possible hemodynamic significant stenosis in the proximal to the A1 branch of the right anterior cerebral artery. 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 CT angiogram recommended. 5. CT angiogram of the head shows no acute stroke. A patent dural venous sinus. Focal stenosis, approaching 90% in the posterior branch of the triplicated anterior cerebral artery. Focal high-grade stenosis of the origin of the right posterior cerebral artery measuring 70-88% stenosis. This correlates with the area of abnormality seen in the MRA of the head, but does not represent acute thromboembolism. No high grade stenosis of the middle cerebral artery branches are seen. There is no correlation to the aneurysm seen on CT commented on. He is felt to have severe intracranial atherosclerosis. 6. Venous duplex of the lower extremities shows no DVT. 7. Echocardiogram shows left ventricular size normal. Ejection fraction 65- 70%. Mild right ventricular enlargement. Mild tricuspid regurgitation. Mildly abnormal right heart pressures. RVSP at rest is 58 mmHg. A patent foramen ovale versus atrial septal defect with [id number] shunting is seen. HOSPITAL COURSE: He is an 89-year-old man who has high blood pressure, chronic atrial fibrillation and is supposed to be taking Eliquis. Memory started worsening year ago and brain MRI at that time showed small multiple infarcts. Today, he presents with sudden numbness of his mid body starting in the groin area and going up the abdomen and chest and then he could not speak. He began to have garbled attempts at speaking and called for his . His asked him to smile and it was not an even smile, but he was moving both arms. She called 911 and the EMS transported him to the emergency room. In the ambulance, his speech started to recover and since being in the emergency room, he had no deficits. He does admit that he sometimes skips his Eliquis because he does not believe in taking medications. He does not like how it makes his hands bruise. There is no odynophagia or GI sensitivity with these medications. In the emergency room, his temperature was 36.6. Heart rate 88. Respirations 18. Blood pressure 151/93. Saturation 98%. He was an alert, oriented, elderly gentleman. Cranial nerves appeared intact, and strength was symmetrical and normal. No drift. Speech was fluent and articulate. No dysmetria. In the emergency room, he did receive a CT of the head, which is noted above. His EKG has atrial fibrillation. The CT of the head was initially negative, which led to carotid Dopplers as above. Brain MRI was ordered with brain MRA and showed possible thromboembolus. Because of thromboembolus, an echocardiogram was done, which showed a patent foramen ovale. As such, venous Dopplers were done and those were negative. The MR angiogram suggested that the patient get a CT angiogram and those results are as above. Over the course of his observation stay, patient did not have any recurrent neurological deficits or symptoms. Hospitalist taking care of the patient spoke to Cardiology, interventional radiology, and Neurology about how to best manage this case. If patient was going to be noncompliant with Eliquis, then an attempt to fix the foramen ovale might be indicated. However, if patient committed to being compliant with Eliquis, that would not need to be done. Patient did get a beta dhaval and a statin while he was here and aspirin since he was not going to be on Eliquis. But, after conversation, patient and the family stated they would be compliant with Eliquis and he would take it regularly. As such, he was not discharged on a statin, beta dhaval or aspirin. Those still may be needed if he has more symptoms consistent with his atherosclerotic disease. Case discussed with Dr. Wilson, his PCP. Overall, he has 2 mechanisms of possible injury. One is chronic atrial fibrillation with embolic stroke. The other is simple ischemic disease in a patient who has severe atherosclerotic disease of his brain arteries. However, patient is leaning toward "less is more." He does not like the idea of taking medications. I would strongly suggest he sit down and talk to his primary care provider if he wants maximal medical therapy and then should be on at least a statin in addition to his beta dhaval and Eliquis. All of this was discussed with the family. PHYSICAL EXAMINATION VITAL SIGNS: At discharge, temperature was 36.5, pulse is 70, blood pressure 148/88. Respirations 16, and he is 100% on room air. He is 5 feet 11 inches tall and weighs 73.5 kg. GENERAL: He has a very quiet affect, mildly forgetful, lets his and his children do most of the talking. However, children due to take the time to sit down and carefully break things down for dad and repeats the information I have given him. Patient, however, is overwhelmed with the amount of data we are giving him. He does have mild carotid bruits bilaterally. Normal carotid upstroke. NECK: Not stiff. LUNGS: Slow, shallow and unlabored respiration and are clear. HEART: He has an irregular rate and rhythm that is controlled. Soft systolic ejection murmur at left lower sternal border, nonradiating. ABDOMEN: Benign. EXTREMITIES: Without edema. NEUROLOGIC: Other than his memory loss, and quiet affect, he has no focal neurological deficits. Hearing is intact. He is able to get up to the bathroom to go by himself and get back up off the toilet and come back out to the room again. DISPOSITION: He is discharged in stable condition. I am asking him to follow up with his primary care provider, Dr. Wilson. He promises to resume his Eliquis. Creatinine is 0.8 with a GFR of 91 and does not require adjustment of his medication. Cholesterol was 197, LDL 110, HDL 76. cc: Jacinto Wilson MD TD: 11/23/2019 10:25 MTDD
== END 2019-11-22 12:58 | disposition home or self-care (01) ==
LOC: EDUNIT# → ED 14:22 → MS2 15:58
PROVIDERS: ADMIT Internal Medicine; ATTEND Specialist
DX: G45.9 Transient cerebral ischemic attack, unspecified (principal); T45.516A Underdosing of anticoagulants, initial encounter; Z91.128 Patient's intentional underdosing of medication regimen for other reason; Y92.009 Unspecified place in unspecified non-institutional (private) residence as the place of occurrence of the external cause; I11.9 Hypertensive heart disease without heart failure; I48.20 Chronic atrial fibrillation, unspecified; I69.311 Memory deficit following cerebral infarction; F01.50 Vascular dementia, unspecified severity, without behavioral disturbance, psychotic disturbance, mood disturbance, and anxiety; Q21.1 Atrial septal defect; I66.02 Occlusion and stenosis of left middle cerebral artery; I66.19 Occlusion and stenosis of unspecified anterior cerebral artery; I66.21 Occlusion and stenosis of right posterior cerebral artery; I67.1 Cerebral aneurysm, nonruptured; I07.1 Rheumatic tricuspid insufficiency; F40.240 Claustrophobia; Z86.69 Personal history of other diseases of the nervous system and sense organs; Z91.81 History of falling; Z87.891 Personal history of nicotine dependence
CPT/HCPCS: 36415; 70450; 70496; 70544; 70551; 80053; 80061; 81003; 83036; 83690; 84484; 85025; 85610; 85730; 93005; 93306; 93880; 93970; 96374; 96375; 96376; 97161; 99285; A9270; A9585; G0378; J2060; Q9967; 80320; 81001; 83721

== ENCOUNTER 2020-02-22 09:50 | Outpatient (CLI) | payer MEDICARE, OTHER ==
[2020-02-22 13:21] LABS: BASOPHILS # (AUTO) 0.1 10^3/uL (0.0-0.1); BASOPHILS % (AUTO) 0.9 %; EOSINOPHILS # (AUTO) 0.1 10^3/uL (0.0-0.7); EOSINOPHILS % (AUTO) 2.1 %; HGB - HEMOGLOBIN 8.1 g/dL (14.0-18.0); LYMPHOCYTES # (AUTO) 0.9 10^3/uL (1.5-3.5); LYMPHOCYTES % (AUTO) 17.8 %; MEAN CORPUSCULAR HEMOGLOBIN 22.9 pg (27.0-31.0); MEAN CORPUSCULAR HGB CONC 30.3 g/dL (32.0-36.0); MEAN CORPUSCULAR VOLUME 75.4 fL (80.0-94.0); MEAN PLATELET VOLUME 9.5 fL (7.4-11.4); MONOCYTES # (AUTO) 0.7 10^3/uL (0.0-1.0); MONOCYTES % (AUTO) 12.3 %; NEUTROPHILS # (AUTO) 3.5 10^3/uL (1.5-6.6); NEUTROPHILS % (AUTO) 66.5 %; PLT - PLATELET COUNT 196 10^3/uL (130-450); RED BLOOD COUNT 3.54 10^6/uL (4.70-6.10); RED CELL DISTRIBUTION WIDTH 17.6 % (12.0-15.0); WHITE BLOOD COUNT 5.3 x10^3/uL (4.8-10.8)
[2020-02-22 13:54] LABS: CALCIUM 8.6 mg/dL (8.5-10.3); CREATININE 0.9 mg/dL (0.6-1.2)
== END 2020-02-22 23:59 | disposition home or self-care (01) ==
LOC: LAB.WCP 09:50
PROVIDERS: ATTEND Family Medicine
DX: R09.89 Other specified symptoms and signs involving the circulatory and respiratory systems (principal); R23.1 Pallor
CPT/HCPCS: 36415; 80048; 83880; 85025

== ENCOUNTER 2020-02-22 09:54 | Outpatient (CLI) | payer MEDICARE, OTHER ==
--- NOTE | 2020-02-22 23:16 | XRAY Report ---
Reason: DECREASED BREATH SOUNDS RIGHT LOWER LOBE Procedure Date: 02/22/2020 Accession Number: [id number] / [id number] Procedure: WCP - Chest 2 View X-Ray CPT Code: 99981 Final Report FULL RESULT: EXAM: CHEST RADIOGRAPHY EXAM DATE: 02/22/2020 09:54 AM. CLINICAL HISTORY: DECREASED BREATH SOUNDS RIGHT LOWER LOBE. COMPARISON: None. TECHNIQUE: 2 views. FINDINGS: Lungs/Pleura: Small right pleural effusion. Minimal left pleural effusion. Mild bibasilar linear atelectasis suspected. No pneumothorax. Mediastinum: Heart and mediastinal contours are unremarkable. IMPRESSION: Small right pleural effusion. Minimal left pleural effusion. Mild bibasilar linear atelectasis suspected. No pneumothorax. RADIA
== END 2020-02-22 23:59 | disposition home or self-care (01) ==
LOC: DI.WCP 09:54
PROVIDERS: ATTEND Family Medicine
DX: J90 Pleural effusion, not elsewhere classified (principal); R23.1 Pallor; I48.91 Unspecified atrial fibrillation; I34.0 Nonrheumatic mitral (valve) insufficiency; I10 Essential (primary) hypertension
CPT/HCPCS: 36415; 71046; 80048; 83880; 85025

== ENCOUNTER 2020-03-05 07:00 | Outpatient (CLI) | payer MEDICARE, OTHER | END 2020-03-05 23:59 | disposition home or self-care (01) | LOC: LAB.R 07:00 | PROVIDERS: ATTEND Family Medicine | DX: D50.9 Iron deficiency anemia, unspecified (principal) | CPT/HCPCS: 82274 ==

== ENCOUNTER 2020-03-05 14:14 | Outpatient (CLI) | payer MEDICARE, OTHER ==
[2020-03-05 14:38] LABS: BASOPHILS # (AUTO) 0.1 10^3/uL (0.0-0.1); BASOPHILS % (AUTO) 0.9 %; EOSINOPHILS # (AUTO) 0.3 10^3/uL (0.0-0.7); EOSINOPHILS % (AUTO) 3.6 %; HGB - HEMOGLOBIN 9.2 g/dL (14.0-18.0); LYMPHOCYTES % (AUTO) 13.8 %; MEAN CORPUSCULAR HEMOGLOBIN 22.5 pg (27.0-31.0); MEAN CORPUSCULAR HGB CONC 29.9 g/dL (32.0-36.0); MEAN CORPUSCULAR VOLUME 75.5 fL (80.0-94.0); MEAN PLATELET VOLUME 8.9 fL (7.4-11.4); MONOCYTES # (AUTO) 0.8 10^3/uL (0.0-1.0); NEUTROPHILS # (AUTO) 4.9 10^3/uL (1.5-6.6); NEUTROPHILS % (AUTO) 70.1 %; PLT - PLATELET COUNT 270 10^3/uL (130-450); RED BLOOD COUNT 4.08 10^6/uL (4.70-6.10); RED CELL DISTRIBUTION WIDTH 21.5 % (12.0-15.0)
[2020-03-05 14:55] LABS: RBC MORPHOLOGY (MULTIPLE) 1+ ACANTHOCYTES (NORMAL)
[2020-03-05 15:08] LABS: FERRITIN 17.6 ng/mL (23.9-336.2)
[2020-03-05 15:09] LABS: % IRON SATURATION 6 % (20-50); IRON 25 ug/dL (45-182); TOTAL IRON BINDING CAPACITY 395 ug/dL (250-450); TRANSFERRIN 282 mg/dL (180-329)
[2020-03-05 15:12] LABS: FOLATE 22.42 ng/mL (5.90 - >24.8)
== END 2020-03-05 14:15 | disposition home or self-care (01) ==
LOC: LAB 14:14
PROVIDERS: ATTEND Family Medicine
DX: D50.9 Iron deficiency anemia, unspecified (principal)
CPT/HCPCS: 36415; 82274; 82728; 82746; 83540; 84466; 85025; 85045

== ENCOUNTER 2020-04-09 11:52 | Outpatient (CLI) | payer MEDICARE, OTHER ==
[2020-04-09 12:20] LABS: ABSOLUTE RETICS # AUTO 0.069 10^6/uL (0.020-0.110); BASOPHILS # (AUTO) 0.1 10^3/uL (0.0-0.1); EOSINOPHILS # (AUTO) 0.2 10^3/uL (0.0-0.7); EOSINOPHILS % (AUTO) 3.6 %; HGB - HEMOGLOBIN 11.4 g/dL (14.0-18.0); LYMPHOCYTES # (AUTO) 1.1 10^3/uL (1.5-3.5); LYMPHOCYTES % (AUTO) 20.1 %; MEAN CORPUSCULAR HEMOGLOBIN 27.1 pg (27.0-31.0); MEAN CORPUSCULAR HGB CONC 31.8 g/dL (32.0-36.0); MEAN CORPUSCULAR VOLUME 85.5 fL (80.0-94.0); MEAN PLATELET VOLUME 8.4 fL (7.4-11.4); MONOCYTES # (AUTO) 0.5 10^3/uL (0.0-1.0); NEUTROPHILS # (AUTO) 3.4 10^3/uL (1.5-6.6); NEUTROPHILS % (AUTO) 64.5 %; PLT - PLATELET COUNT 175 10^3/uL (130-450); WHITE BLOOD COUNT 5.2 x10^3/uL (4.8-10.8)
== END 2020-04-09 11:53 | disposition home or self-care (01) ==
LOC: LAB 11:52
PROVIDERS: ATTEND Family Medicine
DX: D50.9 Iron deficiency anemia, unspecified (principal)
CPT/HCPCS: 36415; 85025; 85045

== ENCOUNTER 2020-06-18 11:25 | Outpatient (CLI) | payer MEDICARE, OTHER ==
[2020-06-18 12:05] LABS: BASOPHILS # (AUTO) 0.1 10^3/uL (0.0-0.1); EOSINOPHILS # (AUTO) 0.1 10^3/uL (0.0-0.7); EOSINOPHILS % (AUTO) 1.8 %; HGB - HEMOGLOBIN 12.7 g/dL (14.0-18.0); LYMPHOCYTES # (AUTO) 0.9 10^3/uL (1.5-3.5); LYMPHOCYTES % (AUTO) 17.1 %; MEAN CORPUSCULAR HEMOGLOBIN 30.8 pg (27.0-31.0); MEAN CORPUSCULAR HGB CONC 32.4 g/dL (32.0-36.0); MEAN CORPUSCULAR VOLUME 94.9 fL (80.0-94.0); MEAN PLATELET VOLUME 9.1 fL (7.4-11.4); MONOCYTES # (AUTO) 0.5 10^3/uL (0.0-1.0); MONOCYTES % (AUTO) 10.6 %; NEUTROPHILS # (AUTO) 3.5 10^3/uL (1.5-6.6); NEUTROPHILS % (AUTO) 68.9 %; PLT - PLATELET COUNT 152 10^3/uL (130-450); RED BLOOD COUNT 4.13 10^6/uL (4.70-6.10); RED CELL DISTRIBUTION WIDTH 13.9 % (12.0-15.0); WHITE BLOOD COUNT 5.1 x10^3/uL (4.8-10.8)
[2020-06-18 12:31] LABS: ALBUMIN 4.3 g/dL (3.2-5.5); BILIRUBIN,TOTAL 1.1 mg/dL (0.2-1.0); CREATININE 0.9 mg/dL (0.6-1.2); TOTAL PROTEIN 6.5 g/dL (6.7-8.2)
== END 2020-06-18 11:26 | disposition home or self-care (01) ==
LOC: LAB 11:25
PROVIDERS: ATTEND Family Medicine
DX: D50.9 Iron deficiency anemia, unspecified (principal)
CPT/HCPCS: 36415; 80053; 82728; 85025

== ENCOUNTER 2020-08-09 13:30 | Outpatient (CLI) | payer MEDICARE, OTHER ==
[2020-08-09 19:05] LABS: BASOPHILS # (AUTO) 0.1 10^3/uL (0.0-0.1); BASOPHILS % (AUTO) 1.1 %; EOSINOPHILS # (AUTO) 0.1 10^3/uL (0.0-0.7); HGB - HEMOGLOBIN 13.7 g/dL (14.0-18.0); LYMPHOCYTES % (AUTO) 15.5 %; MEAN CORPUSCULAR HEMOGLOBIN 32.4 pg (27.0-31.0); MEAN CORPUSCULAR HGB CONC 32.9 g/dL (32.0-36.0); MEAN CORPUSCULAR VOLUME 98.6 fL (80.0-94.0); MEAN PLATELET VOLUME 9.7 fL (7.4-11.4); MONOCYTES # (AUTO) 0.7 10^3/uL (0.0-1.0); MONOCYTES % (AUTO) 10.8 %; NEUTROPHILS # (AUTO) 4.5 10^3/uL (1.5-6.6); PLT - PLATELET COUNT 159 10^3/uL (130-450); RED BLOOD COUNT 4.23 10^6/uL (4.70-6.10); RED CELL DISTRIBUTION WIDTH 15.6 % (12.0-15.0); WHITE BLOOD COUNT 6.4 x10^3/uL (4.8-10.8)
[2020-08-09 19:23] LABS: ALBUMIN 4.2 g/dL (3.2-5.5); ALBUMIN/GLOBULIN RATIO 1.6 (1.0-2.2); BILIRUBIN,TOTAL 1.1 mg/dL (0.2-1.0); CALCIUM 9.2 mg/dL (8.5-10.3); CREATININE 0.8 mg/dL (0.6-1.2); TOTAL PROTEIN 6.8 g/dL (6.7-8.2)
[2020-08-09 19:42] LABS: THYROID STIMULATING HORMONE 1.64 uIU/mL (0.34-5.60)
[2020-08-09 19:44] LABS: FREE T3 2.82 pg/mL (2.5-3.9); FREE T4 (FREE THYROXINE) 0.86 ng/dL (0.58-1.64)
== END 2020-08-09 23:59 | disposition home or self-care (01) ==
LOC: LAB.WCP 13:30
PROVIDERS: ATTEND Family Medicine
DX: D50.0 Iron deficiency anemia secondary to blood loss (chronic) (principal); D50.9 Iron deficiency anemia, unspecified; I48.91 Unspecified atrial fibrillation; M25.561 Pain in right knee; I10 Essential (primary) hypertension; K21.9 Gastro-esophageal reflux disease without esophagitis
CPT/HCPCS: 36415; 80053; 84439; 84443; 84481; 85025

== ENCOUNTER 2020-08-10 11:39 | Outpatient (CLI) | payer MEDICARE, OTHER ==
--- NOTE | 2020-08-10 12:17 | XRAY Report ---
PROCEDURE: Knee 3 View RT INDICATIONS: KNEE PAIN, RIGHT TECHNIQUE: 3 views of the right knee(s) were acquired. COMPARISON: None. FINDINGS: Bones: Mild to moderate tricompartmental joint space narrowing with marginal osteophytosis indicativ e of osteoarthritic change. There is lateral patellar subluxation and tilt, mild. No suspicious lytic or blastic osseous lesion. No acute fracture or dislocation. Soft tissues: Extensive vascular calcifications. No radiopaque foreign body. There is a small suprapa tellar knee joint effusion and a small infrapatellar knee joint effusion. IMPRESSION: Moderate tricompartmental degenerative changes with associated joint effusion and mild l ateral patellar subluxation and tilt. Reviewed by: Ken Samayoa MD on 08/10/2020 12:16 PM PDT Approved by: Ken Samayoa MD on 08/10/2020 12:16 PM PDT Station ID: [id number]
== END 2020-08-10 11:40 | disposition home or self-care (01) ==
LOC: DI 11:39
PROVIDERS: ATTEND Family Medicine
DX: M17.11 Unilateral primary osteoarthritis, right knee (principal)